=== PATIENT | male | born 1985 | race Caucasian/White ===

== ENCOUNTER 2024-11-26 07:30 | Outpatient (OUT) | payer OTHER, SELFPAY ==
[2024-11-26 08:30] LABS: Alanine Aminotransferase 64 U/L (16-63); Albumin Globulin Ratio 1.2; Albumin Level 4.1 g/dL (3.4-5.0); Alkaline Phosphatase 72 U/L (46-116); Anion Gap 12.2; Aspartate Amino Transferase 21 U/L (15-37); Blood Urea Nitrogen 19.0 mg/dL (7.0-18.0); Calcium 9.1 mg/dL (8.5-10.1); Carbon Dioxide 28.0 mmol/L (21.0-32.0); Chloride 103 mmol/L (98-107); Cholesterol 183 mg/dL (<=200); Estimated GFR (African America >60 (>=60 mL/min/1.73m^2); Estimated GFR (Non-African Ame >60 (>=60 mL/min/1.73m^2); Globulin 3.5 g/dL; Glucose 99 mg/dL (74-106); HDL Cholesterol 32 mg/dL (40-60); Potassium 4.2 mmol/L (3.5-5.1); Sodium 139 mmol/L (136-145); Thyroid Stimulating Hormone 1.769 uIU/mL (0.358-3.740); Total Protein 7.6 g/dL (6.4-8.2); Triglycerides 239 mg/dL (<=150); VLDL CHOLESTEROL 47.8 mg/dL
[2024-11-26 08:34] LABS: Hematocrit 43.4 % (42.0-54.0); Hemoglobin 15.0 g/dL (14.0-18.0); Immature Granulocytes Abs Auto 0.06 10^3/uL (0.00-0.03); Immature Granulocytes Pct Auto 0.8 % (0.0-0.5); Lymphocytes Absolute Auto 1.8 10^3/uL (1.2-3.8); Mean Corpuscular HGB Conc 34.6 g/dL (29.9-35.2); Mean Corpuscular Hemoglobin 29.7 pg (25.9-34.0); Mean Corpuscular Volume 85.9 fL (80.0-94.0); Platelet Count 247 10^3/uL (150-450); Red Blood Count 5.05 10^6/uL (4.70-6.10); White Blood Count 7.3 10^3/uL (4.0-11.0)
== END 2024-11-26 07:31 | disposition home or self-care (01) ==
LOC: LAB 07:33
PROVIDERS: PCP Internal Medicine; Visit Provider Internal Medicine
DX: Z00.00 Encounter for general adult medical examination without abnormal findings (principal); N52.9 Male erectile dysfunction, unspecified
CPT/HCPCS: 36415; 80053; 80061; 84146; 84403; 84443; 85025

== ENCOUNTER 2024-12-08 07:00 | Outpatient (OUT) | payer OTHER, SELFPAY ==
--- OUTSIDE RECORDS SUMMARY | 2024-12-09 12:05 | XMS_ITS | Continuity of Care Document ---
Author Organization [facility] Address [address] [place] [address] Phone Care Team Providers Care Superintendent Building Name Role Phone Antolin Fuentes DO Primary Care Provider [phone] Antolin Fuentes DO Attending Provider [phone] Care Teams Patient Care Team Team Status: Active Member Role Status Dates Antolin Fuentes DO Primary Care Provider Active Visit Care Team Team Status: Inactive Member Role Status Dates Antolin Fuentes DO Primary Care Provider Active Start: November 20, 2024 End: November 20, 2024 Antolin Fuentes DO Attending Provider Active Sta rt: November 20, 2024 End: November 20, 2024 Chief Complaint and Reason for Visit Chief Complaint Admit Date Ongoing sleep issues. Wellness checkup. November 20, 2024 10:58am Reason for Visit Admit Date Obesity November 20, 2024 10:5 8am Suspected sleep apnea November 20, 2024 10 :58am Wellness examination November 20, 2024 10: 58am Allergies, Adverse Reactions, Alerts Allergen Type Severity Reaction Last Updated Verified Status No Known Allergies Allergy Unknown November 20, 2024 10:59 am Yes Active Social History Smoking Status Unknown if ever smoked Observation Status Observation Response Date of Response Legal Sex Male (finding) Sex Assigned At Male 1985 Problems Active Problems Medical Problem Onset Date Status Erectile dysfunction Unknown Active Wellness examination Unknown Active Suspected sleep apnea Unknown Active Obesity Unknown Active Medications Medication Status Dose Units Route Directions Qty Days St art Date Stop Date End Date Instructions Adherence Albuterol Sulfate 90 mcg/actuati on HFA aerosol inhaler Discont inued 2 PUFF INHALA TION Four times daily as needed for shortness of breath or wheezing 8.5 August 09, 2023 12:00a m November 20, 2024 10:59 am Methylpredn isolone (Medrol (Ayush)) 4 mg tablets,dos e pack Discont inued 0 PO per package directions 1 August 09, 2023 12:00a m November 20, 2024 10:59 am PO PER PKG DIR for 6 days [place] (No Known Home Meds) Active November 20, 2024 12:00a m Vital Signs Vital Reading Result Reference Range Collection Date/Time Height 71 [in_i] November 20, 2024 11:06am Weight 119.35 kg November 20, 2024 11:06am Heart Rate 81 /min 60-100 November 20, 2024 11:06am Respiratory rate 12 /min -November 20, 2024 11:06am BP Systolic 130 mm[Hg] 100-140 November 20, 2024 11:06am BP Diastolic 80 mm[Hg] 60-100 November 20, 2024 11:06am BMI (Body Mass Index) 36.6 kg/m2 October 282024 11:06am Advance Directives Advance Directive Response Recorded Date/ Time Advance Directives No August 08 024 2:11pm Insurance Providers Guarantor Shraddha Luque Address [address] [place] [phone] Contact Info. Home Phone: Payer Policy Id Subscriber's Name Subscriber Id Effe ctive Date Expiration Date [facility] [id number] Shraddha Luque [id number] [facility] [id number] Shraddha Luque [id number] Encounters Encounter Location(s) Arrival/Admit Date Discharge/Depart Date Provider(s) Departed Physician/Prov ider Office Visit -[facility] November 20, 2024 10:58am November 20, 2024 11:29am Antolin Fuentes DO Recent Diagnosis Onset Date Admit Date Obesity Unknown November 20, 2024 10:58am Suspected sleep apnea Unknown November 20, 2024 10:58am Wellness examination Unknown November 20, 2024 10:58am Assessments Diagnosis Onset Date Resolution Status Admit Date Obesity acute November 20 10:58am Suspected sleep apnea acute Oct 10:58am Wellness examination acute November 20, 2024 10:58am Plan of Treatment Author Antolin Fuentes [facility] Authored November 20, 2024 11:2 5am I have instructed this patie nt on the recommended lifestyle changes, which includes a low fat, high fiber diet along with a regular exercise routine. I have also reviewed the recommended age-appropriate preventive testing for this patient. I have also reviewed the recommended vaccines for their age and risk factors. STOP BANG - 7 Recommend healthy diet, exercise and weight loss Reommend referral for sleep study I have instructed this patient on a low-fat, high-fiber diet. I have also instructed them to reduce calories, portions sizes, sweet drinks and snacks. I have also recommended they exercise for 30 minutes, 3-5 times weekly. They are aware of the comorbid conditions associated with excessive weight: Diabetes, HTN, Hyperlipidemia, CAD and arthritis. Future Tests Future scheduled test information is unavailable Pending Tests Test Name Ordered Date Scheduled Date Comprehensive Metabolic Panel November 20, 2024 11 :19am Future Visits Future appointment information is unavailable Referrals to Other Providers Referral information is unavailable Future Procedures Procedure Name Ordered Date Scheduled Date Complete Blood Count Auto Diff November 20, 2024 1 1:19am Lipid Panel November 20, 2024 11:19am Prolactin November 20, 2024 11:31am Testosterone November 20, 2024 11:29am Thyroid Stimulating Hormone November 20, 2024 11:1 9am Future Medications Future medication information is unavailable Patient Instructions Patient instructions are unavailable
== END 2024-12-08 07:01 | disposition home or self-care (01) ==
LOC: SLEEP 12-09 12:04
PROVIDERS: PCP Internal Medicine; Visit Provider Internal Medicine
DX: G47.33 Obstructive sleep apnea (adult) (pediatric) (principal)
CPT/HCPCS: 95806

== ENCOUNTER 2025-02-01 20:48 | Outpatient (OUT) | payer OTHER, SELFPAY | END 2025-02-01 20:49 | disposition home or self-care (01) | PROVIDERS: PCP Internal Medicine; Visit Provider Internal Medicine | DX: G47.33 Obstructive sleep apnea (adult) (pediatric) (principal) | CPT/HCPCS: 95811 ==